=== PATIENT | female | born 1995 | race Caucasian/White ===

== ENCOUNTER 2020-02-11 10:05 | Emergency (ER) | payer MEDICARE, MEDICAID ==
[2020-02-11 10:44] VITALS: BP 135/78
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
== END 2020-02-11 11:23 | disposition left against medical advice (07) ==
LOC: ER 10:05
DX: F41.9 Anxiety disorder, unspecified (principal); F43.9 Reaction to severe stress, unspecified; F32.9 Major depressive disorder, single episode, unspecified; F12.10 Cannabis abuse, uncomplicated; I47.1 Supraventricular tachycardia; E23.2 Diabetes insipidus; G43.909 Migraine, unspecified, not intractable, without status migrainosus; Z79.899 Other long term (current) drug therapy; Z79.891 Long term (current) use of opiate analgesic; Z88.8 Allergy status to other drugs, medicaments and biological substances; Z88.6 Allergy status to analgesic agent; Z53.29 Procedure and treatment not carried out because of patient's decision for other reasons
CPT/HCPCS: 99283

== ENCOUNTER 2020-02-11 13:46 | Emergency (ER) | payer MEDICARE, MEDICAID ==
[2020-02-11 14:42] LABS: APPEARANCE,URINE CLEAR; BILIRUBIN,URINE NEGATIVE (NEGATIVE); COLOR,URINE STRAW; GLUCOSE, URINE NEGATIVE (NEGATIVE); KETONES,URINE 80 mg/dL (NEGATIVE); LEUKOCYTE ESTERASE,URINE NEGATIVE (NEGATIVE); NITRITE,URINE NEGATIVE (NEGATIVE); PROTEIN,URINE NEGATIVE (NEGATIVE); URINE SPECIFIC GRAVITY 1.005; UROBILINOGEN,URINE NEGATIVE mg/dL (<2.0)
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
[2020-02-11 14:54] LABS: URINE AMPHETAMINES SCREEN NEGATIVE; URINE COCAINE SCREEN NEGATIVE; URINE METHADONE SCREEN NEGATIVE; URINE PHENCYCLIDINE SCREEN NEGATIVE
[2020-02-11 15:03] LABS: URINE BARBITURATES SCREEN UNCONFIRMED POSITIVE; URINE BENZODIAZEPINES SCREEN UNCONFIRMED POSITIVE; URINE MARIJUANA (THC) SCREEN UNCONFIRMED POSITIVE
[2020-02-11 15:36] VITALS: BP 126/73
[2020-02-11 16:15] LABS: ABSOLUTE LYMPHOCYTES (AUTO) 1.9 10^3/uL (0.5-4.7); ABSOLUTE MONOCYTES (AUTO) 0.5 10^3/uL (0.1-1.4); BASOPHILS % (AUTO) 0.4 % (0-2); EOSINOPHILS % (AUTO) 0.5 % (0-6); HEMATOCRIT 38.4 % (36.0-47.0); HEMOGLOBIN 13.6 g/dL (12.0-15.5); LYMPHOCYTES % (AUTO) 25.5 % (13-45); MEAN CORPUSCULAR HEMOGLOBIN 31.5 pg (27.0-33.4); MEAN CORPUSCULAR HGB CONC 35.4 g/dL (32.0-36.0); MEAN CORPUSCULAR VOLUME 89 fl (80-97); MONOCYTES % (AUTO) 6.3 % (3-13); PLATELET COUNT 281 10^3/uL (150-450); RED BLOOD COUNT 4.32 10^6/uL (3.72-5.28); SEGMENTED NEUTROPHILS % (AUTO) 67.3 % (42-78); TOTAL CELLS COUNTED % (AUTO) 100 %; WHITE BLOOD COUNT 7.4 10^3/uL (4.0-10.5)
[2020-02-11 16:20] LABS: APPEARANCE,URINE CLEAR; BILIRUBIN,URINE NEGATIVE (NEGATIVE); COLOR,URINE COLORLESS; GLUCOSE, URINE NEGATIVE (NEGATIVE); KETONES,URINE 20 mg/dL (NEGATIVE); LEUKOCYTE ESTERASE,URINE NEGATIVE (NEGATIVE); NITRITE,URINE NEGATIVE (NEGATIVE); PROTEIN,URINE NEGATIVE (NEGATIVE); URINE SPECIFIC GRAVITY 1.002; UROBILINOGEN,URINE NEGATIVE mg/dL (<2.0)
[2020-02-11 16:44] LABS: ALBUMIN 4.9 g/dL (3.5-5.0); ALKALINE PHOSPHATASE 82 U/L (38-126); ANION GAP 14 (5-19); ASPARTATE AMINO TRANSFERASE 33 U/L (14-36); BILIRUBIN,DIRECT 0.2 mg/dL (0.0-0.4); BILIRUBIN,TOTAL 0.8 mg/dL (0.2-1.3); BLOOD UREA NITROGEN 9 mg/dL (7-20); CALCIUM 9.7 mg/dL (8.4-10.2); CARBON DIOXIDE 20 mmol/L (22-30); CHLORIDE 94 mmol/L (98-107); POTASSIUM 4.6 mmol/L (3.6-5.0); TOTAL PROTEIN 7.9 g/dL (6.3-8.2)
[2020-02-11 16:47] LABS: ACETAMINOPHEN < 10 ug/mL (10-30); ALCOHOL < 10 mg/dL (NONE DETECTED); GLUCOSE 68 mg/dL (75-110)
[2020-02-11 16:48] LABS: SALICYLATE < 1.0 mg/dL (2.0-20.0)
--- NOTE | 2020-02-11 19:12 | ER Document Report ---
Entered by PAUL CRUZ SCRIBE 02/11/20 1638 Acting as scribe for:FRANKLYN CARMICHAEL MD ED Psych Disorder / Suicide <ABRAHAMBHARATHI - Last Filed: 02/11/20 16:39> - General Mode of Arrival: Ambulatory Information source: Patient, Relative <FRANKLYN CARMICHAEL - Last Filed: 02/11/20 19:26> - General Chief Complaint: Psych Problem Stated Complaint: IVC W/PAPERS Time Seen by Provider: 02/11/20 14:48 Notes: This 24-year-old female patient presents back to the emergency department after previously leaving AMA earlier. This patient was initially seen for anxiety and depression and did not mention suicidal ideation to the provider. The nursing notes that were entered after the patient was seen, stated that she was suicidal and had taken an overdose of her atenolol and Valium a few days ago. Notes placed a little later stated that she had suicidal ideation with a plan. She was allowed to leave AMA according to the nursing notes. After these notes were seen, we were concerned and wanted to do a welfare check. The only practical way to accomplish this was to send someone to the [facility] office to do IVC papers . The patient has now returned on IVC paperwork. Her mother has now arrived from [place] and is a very good historian. Mom did not know that the patient had snuck out with her [facility] boyfriend a few days ago to come down to the [place] area. Mom is here to take the patient back home, and willing to take responsibility for her. (FRANKLYN CARMICHAEL) - Related Data Allergies/Adverse Reactions: prochlorperazine [From Compazine] Allergy (Verified 02/11/20 10:59) promethazine [From Phenergan] Allergy (Verified 02/11/20 10:59) sumatriptan [From Imitrex] Allergy (Verified 02/11/20 10:59) zolmitriptan [From Zomig] Allergy (Verified 02/11/20 10:59) Past Medical History - General Information source: Patient, Relative, [facility] Records - Social History Smoking Status: Never Smoker Cigarette use (# per day): No Chew tobacco use (# tins/day): No Smoking Education Provided: No Frequency of alcohol use: None Drug Abuse: Marijuana Lives with: Parents Family History: Reviewed & Not Pertinent - Medical History Medical History: Other - Gives a history of gadolinium poisoning as a young child due to multiple contrasted MRI scans working up her diabetes insipidus. Neurological Medical History: Reports: Hx Migraine Endocrine Medical History: Reports: Other - Diabetes insipidus Psychiatric Medical History: Reports: Hx Anxiety, Hx Depression <FRANKLYN CARMICHAEL - Last Filed: 02/11/20 19:26> Review of Systems - Review of Systems Constitutional: No symptoms reported EENT: No symptoms reported Cardiovascular: No symptoms reported Respiratory: No symptoms reported Gastrointestinal: No symptoms reported Genitourinary: No symptoms reported Female Genitourinary: No symptoms reported Musculoskeletal: No symptoms reported Skin: No symptoms reported Hematologic/Lymphatic: No symptoms reported Neurological/Psychological: See HPI, Depression, Anxiety <FRANKLYN CARMICHAEL - Last Filed: 02/11/20 19:26> Physical Exam - General General appearance: Alert, Anxious, Other - Depressed and sobbing - HEENT Head: Normocephalic, Atraumatic Eyes: Normal Pupils: PERRL - Respiratory Respiratory status: No respiratory distress - Cardiovascular Rhythm: Regular - Abdominal Inspection: Normal - Back Back: Normal - Extremities General upper extremity: Normal inspection General lower extremity: Normal inspection - Neurological Neuro grossly intact: Yes - Psychological Associated symptoms: Depressed, Tearful - Skin Skin Temperature: Warm Skin Moisture: Dry Skin Color: Normal <FRANKLYN CARMICHAEL - Last Filed: 02/11/20 19:26> - Vital signs Vitals: Temp Pulse Resp BP 98.5 F 64 18 112/67 02/11/20 13:58 02/11/20 13:58 02/11/20 13:58 02/11/20 13:58 Course - Laboratory Result Diagrams: 02/11/20 16:03 02/11/20 16:03 <BHARATHI ABRAHAM - Last Filed: 02/11/20 16:39> - Laboratory Result Diagrams: 02/11/20 16:03 02/11/20 16:03 <FRANKLYN CARMICHAEL - Last Filed: 02/11/20 19:26> - Vital Signs Vital signs: Temp Pulse Resp BP Pulse Ox 97.4 F 70 18 126/73 H 99 02/11/20 15:18 02/11/20 15:18 02/11/20 15:18 02/11/20 15:18 02/11/20 15:18 - Laboratory Laboratory results interpreted by me: 02/11/20 02/11/20 02/11/20 14:20 15:30 16:03 Sodium 128.2 L Chloride 94 L Carbon Dioxide 20 L Glucose 68 L Urine Ketones 80 H 20 H Urine Blood SMALL H SMALL H Salicylates < 1.0 L Acetaminophen < 10 L Discharge <BHARATHI ABRAHAM - Last Filed: 02/11/20 16:39> <FRANKLYN CARMICHAEL - Last Filed: 02/11/20 19:26> - Discharge Clinical Impression: Suicidal ideation Condition: Stable Disposition: HOME, SELF-CARE Additional Instructions: You have been evaluated both medical and behavioral health teams have been deeme d appropriate for discharge. You are recommended to follow-up with your outpatient providers upon returning home. It is important you discussed with them your thoughts and feelings surrounding your recent depression and overdose attempt. Your mother has agreed to be part of your plan of care and confirms she will ensure you follow through with mental health recommendations. DEPRESSION: Your evaluation reveals that you have mental depression. While symptoms may be vague, they often include disturbance of sleep, fatigue, loss of appetite, and general loss of interest in life. While depression may be a side effect of drugs, or a reaction to a major change in your life, many cases have no known cause. If depression is acute, and related to a major loss in your life, you can expect it to clear completely with time. If you have been depressed a long time, are prone to repeated bouts of depression or low mood, or have been thinking of suicide, get help. Depression can be treated with anti-depressant medication and counselling. Long-term depression will often take a few weeks to clear, even with appropriate medication. Follow-up care is important. SUICIDAL IDEATION: Suicidal ideation is a common medical term for thoughts about suicide, which may be as detailed as a formulated plan, without the suicidal act itself. Although most people who undergo suicidal ideation do not commit suicide, some go on to make suicide attempts. The range of suicidal ideation varies greatly from fleeting to detailed planning, role playing, and unsuccessful attempts. While thoughts about suicide are common, most people do not carry out serious actions to commit suicide. Based upon your evaluation and discussion with you, we do not believe you are currently at risk to act upon your thoughts of suicide. You have agreed to return to the Emergency Department, at any time, if you feel inclined to act upon your suicidal thoughts. FOLLOW-UP CARE: If you have been referred to a physician for follow-up care, call the physicians office for an appointment as you were instructed or within the next two days. If you experience worsening or a significant change in your symptoms, notify the physician immediately or return to the Emergency Department at any time for re-evaluation. I personally performed the services described in the documentation, reviewed and edited the documentation which was dictated to the scribe in my presence, and it accurately records my words and actions.
== END 2020-02-11 17:00 | disposition home or self-care (01) ==
LOC: ER 13:46
DX: Z04.6 Encounter for general psychiatric examination, requested by authority (principal); R45.851 Suicidal ideations; F41.9 Anxiety disorder, unspecified; F32.9 Major depressive disorder, single episode, unspecified; E23.2 Diabetes insipidus; G43.909 Migraine, unspecified, not intractable, without status migrainosus; I47.1 Supraventricular tachycardia; Z79.899 Other long term (current) drug therapy; Z79.891 Long term (current) use of opiate analgesic; Z88.8 Allergy status to other drugs, medicaments and biological substances; Z88.6 Allergy status to analgesic agent
CPT/HCPCS: 36415; 80053; 80307; 81001; 81025; 84703; 85025; 99284